=== PATIENT | male | born 1965 | race African-American/Black ===

== ENCOUNTER 2020-06-04 13:28 | Inpatient (IN) | payer OTHER ==
--- NOTE | 2020-06-04 14:26 | BHS.RME ---
Substance Use & Tx History - Substance Use History Heroin Substance amount: 2 bags Frequency of use: Daily Substance route: Inhalation (ex: sniffing or snorting) Date of Last Use: 06/04/20 Xanax Substance amount: 2mg - 3tabs Frequency of use: Daily Substance route: Oral Date of Last Use: 06/04/20 Nicotine Substance amount: 2-3 ciggs Frequency of use: Daily Substance route: Smoking Date of Last Use: 06/04/20 Physical/Psych/Mental Status - Behavior General Behavior: Increased activity (restlessness, agitation) Other Behaviors: Stereotypes - Cooperativeness Cooperativeness: Cooperative - Thinking Thought Processes: Tight, Logical, Goal Directed Thought content: Future oriented - Physical Health Problems Is patient presently having any pain?: No Does patient presently have any injuries (include location): No Does patient currently have a fever: No Is patient : No CIWA Nausea/Vomitin Muscle Tremors: 4-Moderate,w/Arms Extend Anxiety: 4-Mod. Anxious/Guarded Agitation: 4-Moderately Restless Paroxysmal Sweats: 1-Minimal Palms Moist Orientation: 0-Oriented Tacttile Disturbances: 0-None Auditory Disturbances: 0-None Visual Disturbances: 0-None Headache: 2-Mild CIWA-Ar Total Score: 17
[2020-06-04 15:09] VITALS: BMI 28.3
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
[2020-06-04] MEDS ORDERED: ONDANSETRON *ODT* 4 MG TABLET SL PRN (16:37)
[2020-06-04] MEDS ORDERED: MENTHOL/PHENOL 1 EACH UD MM PRN (16:37)
[2020-06-04] MEDS ORDERED: BISMUTH SUBSALICYLATE 524 MG/30 ML UD PO PRN (16:37)
[2020-06-04] MEDS ORDERED: ACETAMINOPHEN 325 MG TABLET (FP) PO PRN ×2 (16:37)
[2020-06-04] MEDS ORDERED: NICOTINE POLACRILEX 2 MG GUM BUC PRN (16:37)
[2020-06-04] MEDS ORDERED: METHOCARBAMOL 500 MG TABLET PO PRN (16:37)
[2020-06-04] MEDS ORDERED: MAGNESIUM CITRATE 300 ML BOTTLE PO PRN (16:37)
[2020-06-04] MEDS ORDERED: IBUPROFEN 400 MG TABLET (FP) PO PRN (16:37)
[2020-06-04] MEDS ORDERED: MAGNESIUM HYDROX 2400MG/30ML ORAL SUSPENSION 30 ML CUP PO PRN (16:37)
[2020-06-04] MEDS ORDERED: diazePAM 5 MG TABLET PO PRN (16:37)
[2020-06-04] MEDS ORDERED: MAG HYDROX/AL HYDROX/SIMETH 30 ML UNIT-DOSE CUP PO PRN (16:37)
[2020-06-04] MEDS ORDERED: hydrOXYzine PAMOATE 25 MG CAPSULE (FP) PO SCH (18:00)
[2020-06-04] MEDS: diazePAM 5 MG TABLET PO SCH (23:03)
[2020-06-04] MEDS: MELATONIN 5 MG TABLETS PO SCH (23:03)
[2020-06-04] MEDS: INSULIN SLIDING SCALE (NOVOLOG) 1 VIAL SQ SCH (23:03)
[2020-06-04] MEDS ORDERED: INSULIN SLIDING SCALE (NOVOLOG) 1 VIAL SQ ONE (23:08)
[2020-06-04] MEDS: THIAMINE HCL 100 MG TABLET (FP) PO SCH (23:09)
[2020-06-04] MEDS: ATORVASTATIN CA 40 MG TABLET (FP) PO SCH (23:09)
[2020-06-05] MEDS: diazePAM 5 MG TABLET PO SCH ×3 (06:42→22:23)
[2020-06-05] MEDS: INSULIN SLIDING SCALE (NOVOLOG) 1 VIAL SQ SCH ×4 (07:01→22:23)
[2020-06-05] MEDS ORDERED: METHADONE HCL 10 MG TABLET PO SCH (09:45)
[2020-06-05] MEDS: NICOTINE 7 MG/24 HOURS TOPICAL PATCH TD SCH (10:32)
[2020-06-05] MEDS: PRENATAL VITAMINS W/ FOLIC ACID TABLET (FP) PO SCH (10:32)
[2020-06-05] MEDS: ASPIRIN COATED 81 MG TABLET.EC PO SCH (10:33)
--- NOTE | 2020-06-05 10:34 | PN ---
S CIWA - CIWA Score Nausea/Vomitin-No Nausea/No Vomiting Muscle Tremors: 3 Anxiety: 3 Agitation: 2 Paroxysmal Sweats: 2 Orientation: 0-Oriented Tacttile Disturbances: 0-None Auditory Disturbances: 2-Mild Harshness/Frighten Visual Disturbances: 0-None Headache: 0-None Present CIWA-Ar Total Score: 12 BHS Progress Note (SOAP) Subjective: Complaints of tremors, sweats, anxiety light and noise sensitivity. Objective: 06/05/20 10:32 Vital Signs 06/05/20 06/05/20 05:54 09:07 Temperature 97.5 F L 98.2 F Pulse Rate 66 72 Respiratory 16 18 Rate Blood Pressure 133/94 140/88 O2 Sat by Pulse 96 96 Oximetry (%) Laboratory Last Values POC Glucometer 87 UNITS (80-120) 06/05/20 06:44 Labs pending. Assessment: 06/05/20 10:32 Alert and oriented x 3, in no acute respiratory distress. Full ROM, ambulating in the unit with walker. Withdrawal symptoms. Plan: Continue detox protocol. Continue daily MMTP dosage ( 140mg)
[2020-06-05] MEDS ORDERED: METHADONE HCL 10 MG TABLET (FOR DETOX USE ONLY) ONE (10:36)
[2020-06-05] MEDS ORDERED: METHADONE HCL 40 MG DISPERSABLE TABLET ONE (10:36)
[2020-06-05] MEDS: METHADONE 120 MG, METHADONE (DETOX) 20 MG PO SCH (10:36)
[2020-06-05] MEDS: LISINOPRIL 5 MG TABLET (FP) PO SCH (12:08)
[2020-06-05 12:19] LABS: HEMATOCRIT 38.9 % (35.4-49); HEMOGLOBIN 12.9 GM/dL (11.7-16.9); MCH 29.8 pg (25.7-33.7); MCHC 33.3 g/dl (32.0-35.9); MEAN CELL VOLUME 89.4 fl (80-96); MEAN PLT VOLUME 9.3 fl (7.5-11.1); PLATELET COUNT 113 K/MM3 (134-434); RBC 4.35 M/mm3 (4.00-5.60); RDW 14.1 % (11.9-15.9); WHITE BLOOD COUNT 7.1 K/mm3 (4.0-10.0)
--- NOTE | 2020-06-05 12:23 | PN ---
[facility] Progress Note Note: Psychiatry Attending's note : Patient is approached at bedside. For psychiatric interview. Declines. " I am tired. I cannot talk now. " Patient will be seen at his convenience. Nurses aware. Contact Psychiatry as needed.
[2020-06-05 12:30] LABS: ALBUMIN 3.4 g/dl (3.4-5.0); BILIRUBIN,TOTAL 0.6 mg/dL (0.2-1); BLOOD UREA NITROGEN 9.7 mg/dL (7-18); CALCIUM 8.9 mg/dL (8.5-10.1); CREATININE 1.2 mg/dL (0.55-1.3); POTASSIUM 3.9 mmol/L (3.5-5.1); TOT PROT 7.5 g/dl (6.4-8.2)
[2020-06-05] MEDS: THIAMINE HCL 100 MG TABLET (FP) PO SCH (22:23)
[2020-06-05] MEDS: ATORVASTATIN CA 40 MG TABLET (FP) PO SCH (22:23)
[2020-06-05] MEDS: MELATONIN 5 MG TABLETS PO SCH (23:00)
[2020-06-06] MEDS ORDERED: METHADONE HCL 40 MG DISPERSABLE TABLET ONE (04:55)
[2020-06-06] MEDS ORDERED: METHADONE HCL 10 MG TABLET (FOR DETOX USE ONLY) ONE (04:56)
[2020-06-06] MEDS: diazePAM 5 MG TABLET PO SCH ×2 (05:24→18:03)
[2020-06-06] MEDS: METHADONE 120 MG, METHADONE (DETOX) 20 MG PO SCH (05:24)
[2020-06-06] MEDS: INSULIN SLIDING SCALE (NOVOLOG) 1 VIAL SQ SCH ×4 (07:03→21:06)
[2020-06-06] MEDS: NICOTINE 7 MG/24 HOURS TOPICAL PATCH TD SCH (10:32)
[2020-06-06] MEDS: PRENATAL VITAMINS W/ FOLIC ACID TABLET (FP) PO SCH (10:32)
[2020-06-06] MEDS: ASPIRIN COATED 81 MG TABLET.EC PO SCH (10:32)
[2020-06-06] MEDS: LISINOPRIL 5 MG TABLET (FP) PO SCH (10:32)
--- NOTE | 2020-06-06 13:16 | PN ---
S CIWA - CIWA Score Nausea/Vomitin-No Nausea/No Vomiting Muscle Tremors: 2 Anxiety: 2 Agitation: 1-Slight > Activity Paroxysmal Sweats: 1-Minimal Palms Moist Orientation: 0-Oriented Tacttile Disturbances: 0-None Auditory Disturbances: 0-None Visual Disturbances: 0-None Headache: 0-None Present CIWA-Ar Total Score: 6 BHS Progress Note (SOAP) Subjective: Complaints of mild tremors, sweats and anxiety. Objective: 06/06/20 13:13 Vital Signs 06/06/20 09:20 Temperature 97.3 F L Pulse Rate 88 Respiratory 18 Rate Blood Pressure 146/101 H Laboratory Last Values WBC 7.1 K/mm3 (4.0-10.0) 06/05/20 07:15 RBC 4.35 M/mm3 (4.00-5.60) 06/05/20 07:15 Hgb 12.9 GM/dL (11.7-16.9) 06/05/20 07:15 Hct 38.9 % (35.4-49) 06/05/20 07:15 MCV 89.4 fl (80-96) 06/05/20 07:15 MCH 29.8 pg (25.7-33.7) 06/05/20 07:15 MCHC 33.3 g/dl (32.0-35.9) 06/05/20 07:15 RDW 14.1 % (11.9-15.9) 06/05/20 07:15 Plt Count 113 K/MM3 (134-434) L 06/05/20 07:15 MPV 9.3 fl (7.5-11.1) 06/05/20 07:15 Sodium 137 mmol/L (136-145) 06/05/20 07:15 Potassium 3.9 mmol/L (3.5-5.1) 06/05/20 07:15 Chloride 100 mmol/L (98-107) 06/05/20 07:15 Carbon Dioxide 33 mmol/L (21-32) H 06/05/20 07:15 Anion Gap 4 MMOL/L (8-16) L 06/05/20 07:15 BUN 9.7 mg/dL (7-18) 06/05/20 07:15 Creatinine 1.2 mg/dL (0.55-1.3) 06/05/20 07:15 Est GFR (CKD-EPI)AfAm 77.33 06/05/20 07:15 Est GFR (CKD-EPI)NonAf 66.72 06/05/20 07:15 POC Glucometer 145 UNITS (80-120) 06/06/20 10:34 Random Glucose 78 mg/dL (74-106) 06/05/20 07:15 Calcium 8.9 mg/dL (8.5-10.1) 06/05/20 07:15 Total Bilirubin 0.6 mg/dL (0.2-1) 06/05/20 07:15 AST 33 U/L (15-37) 06/05/20 07:15 ALT 28 U/L (13-61) 06/05/20 07:15 Alkaline Phosphatase 99 U/L (45-117) 06/05/20 07:15 Total Protein 7.5 g/dl (6.4-8.2) 06/05/20 07:15 Albumin 3.4 g/dl (3.4-5.0) 06/05/20 07:15 Syphilis Serology Reactive (NONREACTIVE) A* 06/05/20 07:15 RPR Titer Reactive 1:1 (NONREACTIVE) H 06/05/20 07:15 COVID-19 (GIBRAN) Not detected (Not Detected) 06/04/20 15:40 Labs reviewed with reactive syphilis serology Assessment: 06/06/20 13:15 Patient was seen and examined at bedside. Alert and oriented x 3, in no acute respiratory distress. Decreased ROM, ambulatory with walker. Withdrawal symptoms. Reactive syphilis serology, denies any lesions. Patient was treated in past and will follow up PCP upon discharge 06/06/20 14:13 Plan: Continue detox protocol. Discharge in AM. prescriptions sent to patient preferred pharmacy.
[2020-06-06] MEDS: ATORVASTATIN CA 40 MG TABLET (FP) PO SCH (21:06)
[2020-06-06] MEDS: THIAMINE HCL 100 MG TABLET (FP) PO SCH (21:06)
[2020-06-06] MEDS: MELATONIN 5 MG TABLETS PO SCH (21:07)
[2020-06-07] MEDS ORDERED: METHADONE HCL 40 MG DISPERSABLE TABLET ONE (03:08)
[2020-06-07] MEDS ORDERED: METHADONE HCL 10 MG TABLET (FOR DETOX USE ONLY) ONE (03:09)
[2020-06-07] MEDS: METHADONE 120 MG, METHADONE (DETOX) 20 MG PO SCH (05:42)
[2020-06-07] MEDS ORDERED: diazePAM 5 MG TABLET PO ONE (06:00)
[2020-06-07] MEDS: INSULIN SLIDING SCALE (NOVOLOG) 1 VIAL SQ SCH ×2 (06:30→11:22)
[2020-06-07 09:23] VITALS: BP 114/87; PULSE 76; TEMP 98.6
--- NOTE | 2020-06-07 09:53 | PN ---
[facility] CIWA - CIWA Score Nausea/Vomitin-No Nausea/No Vomiting Muscle Tremors: None Anxiety: 1-Mildly Anxious Agitation: 0-Normal Activity Paroxysmal Sweats: No Perspiration Orientation: 0-Oriented Tacttile Disturbances: 0-None Auditory Disturbances: 0-None Visual Disturbances: 0-None Headache: 0-None Present CIWA-Ar Total Score: 1 S Progress Note (SOAP) Subjective: alert,oriented x 3,ambulation on the unit with walker,no complaint Objective: 06/07/20 09:51 Vital Signs Temperature 98.6 F 06/07/20 09:03 Pulse Rate 76 06/07/20 09:03 Respiratory Rate 16 06/07/20 09:03 Blood Pressure 114/87 06/07/20 09:03 O2 Sat by Pulse Oximetry (%) 96 06/07/20 05:28 Assessment: 06/07/20 09:51 detox completed,no withdrawal symptom Plan: stable for discharge today,follow up with after care program as arrangement,follow up with medical provider for medical issues
--- NOTE | 2020-06-07 09:55 | DS ---
[facility] Detox Discharge Summary Admission Date: 06/04/20 Discharge Date: 06/07/20 - History Present History: Sedative Dependence, MMTP Additional Comments: alert,oriented x 3 ambulation on the unit with walker lung clear on auscultation bilaterally abdomen soft,no pain,no distension detox completed,no withdrawal symptom stable for discharge today,patient stated he does not need to see psychiatrist,no suicidal,no homicidal follow up with after care program as arrangement [facility] clinic and medical provider for medical issue patient stated he lives with family and daughter total time spending on discharge 35 minutes Pertinent Past History: hypertension hypercholesterolemia ambulation with walker sciatica anxiety,depression.insomnia ptsd dm - Physical Exam Results Vital Signs: Vital Signs Temperature 98.6 F 06/07/20 09:03 Pulse Rate 76 06/07/20 09:03 Respiratory Rate 16 06/07/20 09:03 Blood Pressure 114/87 06/07/20 09:03 O2 Sat by Pulse Oximetry (%) 96 06/07/20 05:28 Pertinent Admission Physical Exam Findings: withdrawal signs and symptom Laboratory Last Values WBC 7.1 K/mm3 (4.0-10.0) 06/05/20 07:15 RBC 4.35 M/mm3 (4.00-5.60) 06/05/20 07:15 Hgb 12.9 GM/dL (11.7-16.9) 06/05/20 07:15 Hct 38.9 % (35.4-49) 06/05/20 07:15 MCV 89.4 fl (80-96) 06/05/20 07:15 MCH 29.8 pg (25.7-33.7) 06/05/20 07:15 MCHC 33.3 g/dl (32.0-35.9) 06/05/20 07:15 RDW 14.1 % (11.9-15.9) 06/05/20 07:15 Plt Count 113 K/MM3 (134-434) L 06/05/20 07:15 MPV 9.3 fl (7.5-11.1) 06/05/20 07:15 Sodium 137 mmol/L (136-145) 06/05/20 07:15 Potassium 3.9 mmol/L (3.5-5.1) 06/05/20 07:15 Chloride 100 mmol/L (98-107) 06/05/20 07:15 Carbon Dioxide 33 mmol/L (21-32) H 06/05/20 07:15 Anion Gap 4 MMOL/L (8-16) L 06/05/20 07:15 BUN 9.7 mg/dL (7-18) 06/05/20 07:15 Creatinine 1.2 mg/dL (0.55-1.3) 06/05/20 07:15 Est GFR (CKD-EPI)AfAm 77.33 06/05/20 07:15 Est GFR (CKD-EPI)NonAf 66.72 06/05/20 07:15 POC Glucometer 147 UNITS (80-120) 06/07/20 05:41 Random Glucose 78 mg/dL (74-106) 06/05/20 07:15 Calcium 8.9 mg/dL (8.5-10.1) 06/05/20 07:15 Total Bilirubin 0.6 mg/dL (0.2-1) 06/05/20 07:15 AST 33 U/L (15-37) 06/05/20 07:15 ALT 28 U/L (13-61) 06/05/20 07:15 Alkaline Phosphatase 99 U/L (45-117) 06/05/20 07:15 Total Protein 7.5 g/dl (6.4-8.2) 06/05/20 07:15 Albumin 3.4 g/dl (3.4-5.0) 06/05/20 07:15 Syphilis Serology Reactive (NONREACTIVE) A* 06/05/20 07:15 RPR Titer Reactive 1:1 (NONREACTIVE) H 06/05/20 07:15 COVID-19 (GIBRAN) Not detected (Not Detected) 06/04/20 15:40 treated for syphilis in the past - Treatment Hospital Course: Detox Protocol Followed, Detoxed Safely, Responded well, Discharged Condition Good Patient has Accepted a Rehab Referral to: declined - Medication Discharge Medications: Ambulatory Orders Aspirin [ASA -] 81 mg PO DAILY 06/07/20 Atorvastatin Ca [Lipitor] 40 mg PO HS 06/07/20 Insulin Lispro [Humalog] 0 unit SQ AC 06/07/20 Lisinopril 5 mg PO DAILY 06/07/20 - Diagnosis (1) Sedative, hypnotic or anxiolytic dependence with withdrawal, uncomplicated Current Visit: Yes Status: Acute (2) Hypertension Current Visit: Yes Status: Acute (3) Hypercholesterolemia Current Visit: Yes Status: Acute (4) Anxiety Current Visit: No Status: Chronic (5) Depression Current Visit: No Status: Chronic (6) Diabetes mellitus Current Visit: No Status: Chronic (7) Nicotine dependence Current Visit: No Status: Chronic (8) PTSD (post-traumatic stress disorder) Current Visit: No Status: Chronic (9) Methadone maintenance therapy patient Current Visit: Yes Status: Acute (10) Walker as ambulation aid Current Visit: Yes Status: Acute - AMA Did Patient Leave Against Medical Advice: No
[2020-06-07] MEDS ORDERED: ASPIRIN 81 MG CHEWABLE TABLETS PO SCH (10:00)
[2020-06-07] MEDS ORDERED: LISINOPRIL 5 MG TABLET (FP) PO SCH ×3 (10:00→11:00)
[2020-06-07] MEDS ORDERED: LISINOPRIL 10 MG TABLET (FP) PO SCH (10:02)
[2020-06-07] MEDS: NICOTINE 7 MG/24 HOURS TOPICAL PATCH TD SCH (10:31)
[2020-06-07] MEDS: PRENATAL VITAMINS W/ FOLIC ACID TABLET (FP) PO SCH (10:31)
--- NOTE | 2020-06-07 18:27 | EKG ---
Test Reason : Blood Pressure : / mmHG Vent. Rate : 069 BPM Atrial Rate : 069 BPM P-R Int : 186 ms QRS Dur : 136 ms QT Int : 404 ms P-R-T Axes : 069 -61 -08 degrees QTc Int : 432 ms NORMAL SINUS RHYTHM LEFT AXIS DEVIATION RIGHT BUNDLE BRANCH BLOCK INFERIOR INFARCT , AGE UNDETERMINED ABNORMAL ECG WHEN COMPARED WITH ECG OF 04-JUN-2020 16:08, NO SIGNIFICANT CHANGE WAS FOUND Confirmed by LÁZARO VELASQUEZ, KLOE ([id number]) on 06/07/2020 6:27:23 PM Referred By: CLARICE JENKINS Confirmed By:KOLE SESAY MD
--- NOTE | 2020-06-07 18:28 | EKG ---
Test Reason : Blood Pressure : / mmHG Vent. Rate : 065 BPM Atrial Rate : 065 BPM P-R Int : 204 ms QRS Dur : 160 ms QT Int : 476 ms P-R-T Axes : 060 -50 -09 degrees QTc Int : 495 ms NORMAL SINUS RHYTHM LEFT AXIS DEVIATION RIGHT BUNDLE BRANCH BLOCK ABNORMAL ECG NO PREVIOUS ECGS AVAILABLE Confirmed by KOLE SESAY MD ([id number]) on 06/07/2020 6:28:18 PM Referred By: Confirmed By:KOLE SESAY MD
[2020-06-07] MEDS ORDERED: ATORVASTATIN CA 40 MG TABLET (FP) PO SCH (22:00)
--- NOTE | 2020-06-09 09:17 | PN ---
Teaching Attending Note Name of Resident: Marshall Cid ATTENDING PHYSICIAN STATEMENT I saw and evaluated the patient. I reviewed the resident's note and discussed the case with the resident. I agree with the resident's findings and plan as documented. SUBJECTIVE: OBJECTIVE: ASSESSMENT AND PLAN: Agree with resident's findings and plans for detox.
== END 2020-06-07 11:05 | disposition home or self-care (01) | DRG 773 ==
LOC: YASAS 13:28 → Y6N 15:26
PROVIDERS: ADMIT Allergy & Immunology; ATTEND Allergy & Immunology
PROC: HZ2ZZZZ Detoxification Services for Substance Abuse Treatment (ICD-10-PCS; principal; 2020-06-04)
DX: F13.230 Sedative, hypnotic or anxiolytic dependence with withdrawal, uncomplicated (principal); F11.20 Opioid dependence, uncomplicated; F17.210 Nicotine dependence, cigarettes, uncomplicated; F20.9 Schizophrenia, unspecified; F41.9 Anxiety disorder, unspecified; F32.9 Major depressive disorder, single episode, unspecified; F43.10 Post-traumatic stress disorder, unspecified; I10 Essential (primary) hypertension; E11.9 Type 2 diabetes mellitus without complications; Z79.84 Long term (current) use of oral hypoglycemic drugs; M54.30 Sciatica, unspecified side; Z20.2 Contact with and (suspected) exposure to infections with a predominantly sexual mode of transmission; Z99.89 Dependence on other enabling machines and devices; Z87.828 Personal history of other (healed) physical injury and trauma
CPT/HCPCS: 36415; 80053; 82962; 85027; 86593; 86780; 93005; 93010; U0003